=== PATIENT | male | born 1945 | race Caucasian/White ===

== ENCOUNTER → 2023-07-31 | Outpatient (CLI) | payer MEDICARE | LOC: RESCLI 12:41 | PROVIDERS: ATTEND Internal Medicine | DX: I10 Essential (primary) hypertension (principal); E03.9 Hypothyroidism, unspecified; E78.5 Hyperlipidemia, unspecified; E11.9 Type 2 diabetes mellitus without complications; K21.9 Gastro-esophageal reflux disease without esophagitis; I44.0 Atrioventricular block, first degree; M19.90 Unspecified osteoarthritis, unspecified site; I20.9 Angina pectoris, unspecified; Z86.711 Personal history of pulmonary embolism ==